=== PATIENT | female | born 1995 | race Two or more races ===

== ENCOUNTER 2023-01-05 08:02 | Outpatient (CLI) | payer OTHER | END 2023-01-05 08:54 | disposition home or self-care (01) | LOC: PRENATAL 08:02 | PROVIDERS: ATTEND Obstetrics & Gynecology Maternal & Fetal Medicine | DX: O26.849 Uterine size-date discrepancy, unspecified trimester (principal); O36.8199 Decreased fetal movements, unspecified trimester, other fetus; O34.40 Maternal care for other abnormalities of cervix, unspecified trimester; O99.210 Obesity complicating pregnancy, unspecified trimester; Z3A.32 32 weeks gestation of pregnancy ==

== ENCOUNTER 2023-02-20 06:58 | Inpatient (IN) | payer OTHER ==
[~2023-02-20] VITALS: Ht 162.6 cm; Wt 3.6 kg
[2023-02-20] MEDS ORDERED: PRENA1 CHEW TA1.4 MG PO (08:34)
[2023-02-22] MEDS ORDERED: IBUPROFEN800 MG PO (09:15)
== END 2023-02-22 15:00 | disposition home or self-care (01) | DRG 788 ==
LOC: LDR 06:58 → O/R 11:59 → OB/GYN 14:15 → LDR 02-24 10:15
PROVIDERS: Specialist; ADMIT Obstetrics & Gynecology; ATTEND Obstetrics & Gynecology
PROC: 4A1HXCZ Monitoring of Products of Conception, Cardiac Rate, External Approach (ICD-10-PCS; 2023-02-20)
PROC: 10D00Z1 Extraction of Products of Conception, Low, Open Approach (ICD-10-PCS; principal; 2023-02-20 11:00)
DX: O62.2 Other uterine inertia (principal); O33.8 Maternal care for disproportion of other origin; Z3A.39 39 weeks gestation of pregnancy; Z37.0 Single live birth; Z20.822 Contact with and (suspected) exposure to COVID-19